=== PATIENT | male | born 1965 | race Caucasian/White ===

== ENCOUNTER 2016-09-14 17:31 | Emergency (ER) | payer OTHER ==
[~2016-09-14] VITALS: Ht 177.8 cm; Wt 113.4 kg
[2016-09-14 17:34] VITALS: BP 155/86
[2016-09-14] MEDS ORDERED: HYDROXYZINE HCL50 M1 PO (17:54)
[2016-09-14] MEDS ORDERED: DELTASONE20 MG PO (17:54)
--- NOTE | 2016-09-14 17:55 | ED SKIN/ALLERGY COMPLAINT ---
History of Present Illness General Chief Complaint: General Adult Stated Complaint: POISON YNES ON FACE/BODY Source: patient Exam Limitations: no limitations Vital Signs & Intake/Output Vital Signs & Intake/Output Vital Signs Date Time Temp Pulse Resp B/P B/P Pulse O2 O2 Flow FiO2 Mean Ox Delivery Rate 09/14 1734 97.7 67 15 155/86 97 Room Air Room Air Allergies Coded Allergies: poison ynes extract (Intermediate, SWELLING 09/14/16) Reconcile Medications Atorvastatin Calcium 20 MG TABLET 1 TAB PO DAILY HIGH BLOOD PRESSURE ( Reported) Hydroxyzine HCl 50 MG TABLET 1 TAB PO TID ITCHING Losartan Potassium 50 MG TABLET 1 TAB PO DAILY HEART HEALTH (Reported) Prednisone (Deltasone) 20 MG TABLET 1 TAB PO TID ONTACT DERMATITIS Warfarin Sodium 5 MG TABLET 1 TAB PO DAILY BLOOD THINNER (Reported) Triage Note: PT TO ED FOR C/C OF POISON YNES SINCE YESTERDAY. L EYE SWOLLEN. USUALLY GETS STEROID PACK TO HELP Triage Nurses Notes Reviewed? yes Onset: Abrupt Duration: day(s):, constant, continues in ED Timing: recent history Severity: moderate, severe Location: face, extremities No Modifying Factors: none HPI: 51-year-old male comes into emergency room with rash on his face and upper arms. Symptoms began on for the past couple days. Itching. Red. History of poison nyes. Patient has been working outside and feels consistent with previous poison ynes. Denies any other associated symptoms. (FÁTIMA VILLALOBOS) Past History Travel History Traveled to [place] past 21 day No Medical History Any Pertinent Medical History? 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 No (FÁTIMA VILLALOBOS) Review of Systems Review of Systems Constitutional: Reports: no symptoms. EENTM: Reports: no symptoms. Respiratory: Reports: no symptoms. Cardiovascular: Reports: no symptoms. GI: Reports: no symptoms. Genitourinary: Reports: no symptoms. Musculoskeletal: Reports: no symptoms. Skin: Reports: see HPI. Neurological/Psychological: Reports: no symptoms. Hematologic/Endocrine: Reports: no symptoms. Immunologic/Allergic: Reports: no symptoms. All Other Systems: Reviewed and Negative (FÁTIMA VILLALOBOS) Physical Exam Physical Exam General Appearance: well developed/nourished, mild distress Head: atraumatic Eyes: Bilateral: normal appearance. Ears, Nose, Throat: normal ENT inspection, hearing grossly normal Neck: normal inspection Respiratory: no respiratory distress Back: normal inspection Extremities: normal inspection, normal range of motion, no edema Neurologic/Psych: awake, alert, oriented x 3, normal mood/affect Skin: intact, rash Skin Problem Location: face, upper extremities Skin Problem Character: maculopapular erythematous rash Lymphatic: no anterior cervical johana (FÁTIMA VILLALOBOS) Progress Differential Diagnosis: abscess/cellulitis, allergic reaction, anaphylaxis, angioedema, contact dermatitis, scarlet fever, shingles, toxic shock syndrome, urticaria Plan of Care: 09/14/2016 7:09:04 PM Patient clinically looks well. In no apparent distress. Nontoxic appearing. Started on prednisone. Return if any concerns worsening symptoms. Clinically looks well. (FÁTIMA VILLALOBOS) Departure Departure Disposition: HOME OR SELF CARE Condition: Stable Clinical Impression Primary Impression: Contact dermatitis Referrals: DIRK VÁZQUEZ MD (PCP/Family) Additional Instructions: Take hydroxyzine and prednisone as prescribed. Follow-up with ear primary care doctor as needed. Return if any other concerns worsening symptoms. Please go over all results of today's visit with your primary care doctor. Contact your primary care doctor to let them know you were here in the emergency room. There may be nonspecific findings which may not be related to your visit today here in the emergency room but may require further evaluation and chronic monitoring by your primary care doctor. If you had a laceration today the chance of foreign body always remains. You should follow-up with your primary care doctor for recheck in 3-5 days for a wound check. If you had an x-ray done there is a chance that a fracture could have been missed on initial read and you should follow-up with your primary care doctor for repeat x-rays if symptoms persist. If your blood pressure was elevated here in the emergency room please have rechecked by her primary care doctor within the next 48 hours by your primary care doctor. If you were prescribed a narcotic here in the emergency room or any type of controlled substances you're not allowed to drive while taking this medication or operate any type of heavy machinery. Narcotics can make you feel lightheaded dizziness nausea and can cause constipation. You may need to pick up worker a stool softener. Thank you for choosing [facility] emergency room. Please return to the emergency room immediately if you have any other concerns worsening of symptoms. Departure Forms: Customer Survey General Discharge Information Prescriptions: Current Visit Scripts Prednisone (Deltasone) 1 TAB PO TID #15 MG Hydroxyzine HCl 1 TAB PO TID #30 TAB (FÁTIMA VILLALOBOS) PA/PAPER STEAMER Co-Sign Statement Statement: ED Attending supervision documentation- [] I saw and evaluated the patient. I have also reviewed all the pertinent lab results and diagnostic results. I agree with the findings and the plan of care as documented in the PA's/PAPER STEAMER's documentation. [X] I have reviewed the ED Record and agree with the PA's/PAPER STEAMER's documentation. [] Additions or exceptions (if any) to the PAs/PAPER STEAMER's note and plan are summarized below: [] (MILIND SOLORZANO,JUHI Chaparro)
[2016-09-14] MEDS ORDERED: WARFARIN SODIUM5 M1 PO (18:06)
[2016-09-14] MEDS ORDERED: LOSARTAN POTASS50 M1 PO (18:06)
[2016-09-14] MEDS ORDERED: ATORVASTATIN CA20 M1 PO (18:07)
== END 2016-09-14 18:09 ==
LOC: ERH 17:31
DX: L25.9 Unspecified contact dermatitis, unspecified cause (principal)